=== PATIENT | female | born 1985 | race Caucasian/White ===

== ENCOUNTER 2021-02-04 23:55 | Emergency (ER) | payer MEDICAID, SELFPAY ==
[2021-02-04 23:56] VITALS: BP 126/71; PULSE 122; RESP 18; TEMP 36.7; O2SAT 98; BMI 20.7
[2021-02-05 00:16] VITALS: BP 126/71; PULSE 122; RESP 18; TEMP 36.7; O2SAT 98
--- NOTE | 2021-02-05 00:25 | CT_ITS ---
STUDY: CT SOFT TISSUE NECK WITH CONTRAST REASON FOR EXAM: Female, 35 years old. abscess RADIATION DOSAGE (If Supplied By Facility): CTDIvol = ( 9.29 ) mGy, DLP = ( 283.17 ) mGycm TECHNIQUE: The patient was scanned in a multi-detector CT scanner. High resolution transaxial imaging was performed following intravenous administration of IV 75mL Isovue-370. Sagittal and coronal images were reconstructed. Individualized dose optimization techniques were used for this CT. COMPARISON: None. FINDINGS: Within the musculature of the left neck near the base of the neck, there is increased edema and swelling with soft tissue and skin thickening with likely small abscess measuring 2.3 x 1.6 cm. Remainder of the visualized soft tissue structures of the neck are within normal limits. No evidence of peritonsillar abscess. CT/Soft Tissue Neck WITH Contrast IMPRESSION: Soft tissue swelling and edema with muscular inflammation and likely small abscess within the musculature near the base of the left neck. Recommend direct visualization Electronically Signed: Mohit Posey DO at 2:07 EDT Tel , Service support ,
[2021-02-05 01:02] LABS: Anion Gap 5 (5-15); BUN 11 mg/dL (7-18); BUN/Creat Ratio 17.7 RATIO (10-20); Calcium,Total 8.9 mg/dL (8.5-10.1); Chloride 102 mmol/L (98-107); Creatinine, Serum 0.62 mg/dL (0.55-1.02); EST Glomerular Filtration Rate 116 mL/min (>60); Est Glom Filt Rate - Afr Amer 140 mL/min (>60); Estimated Creatinine Clearance 95.57 ml/min; Glucose 106 mg/dL (74-106); Potassium 3.2 mmol/L (3.5-5.1); Sodium Level 136 mmol/L (136-145)
[2021-02-05 01:07] LABS: Internal QC Validated? YES +Cl - CLEAR BKGD; Pregnancy, Serum, hCG Quali. NEGATIVE Negative
[2021-02-05 01:08] LABS: Absolute Lymphocyte Count 1.64 X10^3/uL (0.83-4.51); Absolute Neutrophil Count 5.4 X10^3/uL (2.0-7.7); Basophil# 0.04 X10^3/uL; Basophil% 0.5 % (0-1); Eosinophil# 0.17 X10^3/uL; Eosinophils% 2.2 % (0-5); Hemoglobin 11.6 g/dL (12.0-15.0); Lymphocyte # 1.64 X10^3/ul (0.83-4.51); Lymphocyte % 21.1 % (19-41); Mean Corp Hgb Conc 33.1 g/dL (32-36); Mean Corpuscular Hgb 28.3 pg (27.0-32.0); Mean Corpuscular Volume 85.4 fL (81-99); Mean Platelet Vol. 10.4 fl (6.2-12.0); Monocyte# 0.51 X10^3/uL; Monocyte% 6.6 % (0-10); NRBC Flagged by Analyzer 0 % (0-5); Neutrophil # 5.37 X10^3/uL (2.7-7.7); Neutrophil % 69.2 % (47-70); Platelet Count 207 K/mm3 (150-450); RBC Distribution Width CV 13.1 % (11.6-14.6); RBC Distribution Width SD 40.4 fl (35.1-43.9); White Blood Count 7.8 K/mm3 (4.4-11.0)
[2021-02-05 01:30] VITALS: BP 106/73; PULSE 98; RESP 18; TEMP 36.9; O2SAT 100
[2021-02-05 02:57] VITALS: BP 108/70; PULSE 90; RESP 16; TEMP 37.1; O2SAT 100
--- NOTE | 2021-02-05 03:42 | EX.ED.DYSGE1 ---
HPI History of Present Illness Chief Complaint: Abscess Detail of Chief Complaint: Left neck abscess from injecting Informant: patient Onset/Context/Timing Onset: Days Context: Gradual Onset Timing: Continuous Location: Left anterior and lower neck Current Severity: Moderate Maximum Severity: Moderate Worsened by: Touch and movement Associated Symptoms Associated Symptoms: She also has erythema to her right forearm at an injection site Narrative Narrative: Patient is an IV drug abuser. She injected into the above-mentioned areas. Noticed some redness. There is a possible abscess to the base of the left neck. Patient has no other complaints PFSH PFS Home Medications NK 02/05/21 [History Last Taken Unknown] Allergy/AdvReac Type Severity Reaction Status Date / Time Penicillins Allergy Anaphylaxis Verified 02/04/21 23:58 Social History Smoking Status: Current every day smoker ROS ROS ED Constitutional Constitutional ED: Denies chills or fever(s) Eyes Eyes: Denies change in vision ENT ENT ED: Denies ear pain Cardiovascular Cardiovascular: Denies chest pain Respiratory/Chest Respiratory/Chest: Denies dyspnea Gastrointestinal Gastrointestinal: Denies abdominal pain Genitourinary Genitourinary ED: Denies dysuria Musculoskeletal Musculoskeletal: Denies arthralgias or myalgias Integumentary Reports abscess and rash Neurologic Neurologic: Denies headache(s), paresthesias or weakness Psychiatric Psychiatric: Denies anxiety or depression Endocrine Endocrinology: Denies polyuria EXAM Physical Exam Const Vital Signs: 02/04/21 23:56 02/05/21 00:16 02/05/21 01:30 Temperature 98.0 F 98.0 F 98.4 F Temperature Source Temporal Temporal Oral Pulse Rate 122 H 122 H 98 Respiratory Rate 18 18 18 Blood Pressure 126/71 H 126/71 H 106/73 Blood Pressure Mean 89 89 84 Pulse Ox 98 98 100 Oxygen Delivery Method Room Air Room Air Room Air 02/05/21 02:57 Temperature 98.8 F Temperature Source Oral Pulse Rate 90 Respiratory Rate 16 Blood Pressure 108/70 Blood Pressure Mean 82 Pulse Ox 100 Oxygen Delivery Method Room Air Positive well nourished and well developed General Appearance ED: well developed HEENT Negative for trauma Eyes Negative for EOMs intact bilaterally Neck Neck Narrative: Erythema, induration, tenderness at the base of the left anterior neck Chest Wall inspection of chest normal Resp normal respiratory effort and clear to auscultation bilaterally Cardio regular rate and regular rhythm GI normal to inspection, nondistended, normoactive bowel sounds Extremity Negative for normal to inspection General Extremety ED: Negative for edema or tenderness General Extremity: Negative for edema Neuro no sensory deficits noted Sensorium / Orientation: alert Motor Exam: strength 5/5 throughout Psych mental status grossly normal Skin No no rashes or lesions noted Skin Narrative: Erythema without induration or mass to the right mid forearm MDM MDM MDM Narrative Medical decision making narrative: Patient has signs of cellulitis to her left neck and right forearm. I am also concerned for abscess in the left neck. Labs below. She is not septic. Covid negative. CT was performed. There is a small abscess and inflammation into the soft tissue and muscles of the base of the left neck measuring 2.3 x 1.6 cm. I do not have plastics or any other specialist that can address this at this facility. Patient requested [place]. Accepted to [facility] Dr. Martínez. Lab Data Labs: Laboratory Results - last 24 hr 02/05/21 02/05/21 02/05/21 00:43 00:43 00:43 WBC 7.8 RBC 4.10 L Hgb 11.6 L Hct 35.0 L MCV 85.4 MCH 28.3 MCHC 33.1 RDW Std Deviation 40.4 RDW Coeff of Luz 13.1 Plt Count 207 MPV 10.4 Immature Gran % (Auto) 0.400 Neut % (Auto) 69.2 Lymph % (Auto) 21.1 [place] % (Auto) 6.6 Eos % (Auto) 2.2 Baso % (Auto) 0.5 Absolute Neuts (auto) 5.4 Absolute Lymphs (auto) 1.64 Nucleated RBC % 0 Sodium 136 Potassium 3.2 L Chloride 102 Carbon Dioxide 29.0 Anion Gap 5 BUN 11 Creatinine 0.62 Estim Creat Clear Calc 95.57 Est GFR (MDRD) Af Amer 140 Est GFR (MDRD) Non-Af 116 BUN/Creatinine Ratio 17.7 Glucose 106 Calcium 8.9 Serum , Qual NEGATIVE Radiography Diagnostic Testing: Radiology Impression Soft Tissue Neck CT 02/05/21 00:25 IMPRESSION: Soft tissue swelling and edema with muscular inflammation and likely small abscess within the musculature near the base of the left neck. Recommend direct visualization Electronically Signed: Mohit Posey DO at 2:07 EDT Tel , Service support , Discharge Plan Triage Chief Complaint: Abscess ED Provider: Ronald Jensen Dx/Rx/DC Orders Clinical Impression: Abscess of skin of neck Prescriptions: No Action NK RF: 0 Primary Care Provider: Care Physician,No Primary Referrals: Care Physician,No Primary [Primary Care Provider] - Disposition Disposition: Transfer to another type HCF
--- NOTE | 2021-02-05 03:44 | ED.RN ---
PT REFUSES TO GO VIA EMS . OK PER MD FOR HER TO ARRIVE VIA PRIVATE CAR, IV D/C'D FOR PRIVATE TRANSPORT
== END 2021-02-05 03:53 | disposition short-term general hospital (02) ==
PROVIDERS: Emergency Provider Emergency Medicine
DX: L02.11 Cutaneous abscess of neck (principal); F17.200 Nicotine dependence, unspecified, uncomplicated
CPT/HCPCS: 36415; 70491; 80048; 84703; 85025; 87040; 87426; 96365; 99283; J7050; Q9967

== ENCOUNTER 2021-11-03 18:24 | Emergency (ER) | payer MEDICAID, SELFPAY ==
[2021-11-03 18:24] VITALS: BP 133/82; PULSE 114; RESP 20; TEMP 35.7; O2SAT 97; BMI 23.6
--- NOTE | 2021-11-03 18:59 | EDS_ITS ---
HPI HPI - GI History of Present Illness Chief Complaint: Flank Pain Informant: patient Abdominal Pain/Flank Pain Onset: Days (3) Context: Gradual Onset Timing: Continuous Quality: Aching Location: - (Left pelvis/lower quadrant, radiating into the left low back) Current Severity: Moderate Maximum Severity: Moderate Worsened by: Nothing Relieved by: Nothing Nausea/Vomiting/Emesis GI Symptom: Positive for Nausea; Negative for Vomiting Diarrhea/Melena/Hematochezia GI Symptom: Negative for Diarrhea, Melena and Hematochezia Associated Symptoms Associated Symptoms: Positive for Dysuria and Frequency; Negative for Hematuria and Urgency Narrative Narrative: Gradual onset left lower quadrant pain over the last few days. Unprotected intercourse recently, concerned that she may have an STD and wants tested for that to. She has a new mild creamy white discharge from her vagina that does not have foul smell. No vaginal bleeding. Irregular menstrual cycles for the last year or 2, she is not on her cycle currently. . PFSH PFSH Medical History Cholecystectomy planned Home Medications NK 02/05/21 [History Last Taken Unknown] Allergy/AdvReac Type Severity Reaction Status Date / Time Penicillins Allergy Anaphylaxis Verified 11/03/21 18:24 Social History Smoking Status: Current every day smoker tobacco type: cigarettes ROS ROS ED Constitutional Constitutional ED: Denies chills or fever(s) Eyes Eyes: Denies change in vision or diplopia ENT ENT ED: Denies rhinorrhea or sore throat Cardiovascular Cardiovascular: Denies chest pain or palpitations Respiratory/Chest Respiratory/Chest: Denies cough or dyspnea Gastrointestinal Gastrointestinal: Reports as per HPI, abdominal pain and nausea; Denies diarrhea or vomiting Genitourinary Genitourinary ED: Reports dysuria and vaginal discharge; Denies hematuria Musculoskeletal Musculoskeletal: Reports back pain; Denies neck pain Integumentary Denies abscess or rash Neurologic Neurologic: Denies headache(s), paresthesias or weakness Psychiatric Psychiatric: Denies anxiety or suicidal thoughts EXAM Physical Exam Const Vital Signs: 11/03/21 18:24 11/03/21 18:35 11/03/21 21:19 Temperature 96.2 F L Temperature Source Temporal Pulse Rate 114 H Respiratory Rate 20 H 16 Respiratory Effort Normal Non-Labored Blood Pressure 133/82 H Blood Pressure Mean 99 Pulse Ox 97 Oxygen Delivery Method Room Air Positive well nourished and well developed General Appearance ED: well developed and NAD HEENT Reports moist mucous membranes normocephalic and atraumatic Eyes PERRL and EOMs intact bilaterally Neck full ROM and supple Resp normal respiratory effort and clear to auscultation bilaterally Cardio regular rate, regular rhythm and no murmurs GI non-distended GI Narrative: Tender left lower quadrant into the pelvis but also laterally and higher up, no guarding or rebound tenderness, no other areas of tenderness. No palpable mass. Auscultation: normoactive bowel sounds Palpation: soft Speculum Exam - Vagina: vaginal discharge Back/Spine no CVA tenderness General Back: other FROM Extremity normal to inspection General Extremety ED: Negative for edema, pulses abnormal or tenderness General Extremity: Negative for edema or pulses abnormal Neuro oriented x3, CN's II-XII intact bilaterally and no sensory deficits noted Sensorium / Orientation: awake and alert Motor Exam: strength 5/5 throughout Skin no rashes or lesions noted and no wounds MDM MDM MDM Narrative Medical decision making narrative: Given her vaginal discharge and risk for an STI, I obtain basic labs and a first, it was negative so she was sent for a non- transvaginal ultrasound as the initial imaging choice, to evaluate the left ovary as the more likely source of the pain as opposed to the colon/diverticulitis at her age and health. The ultrasound was normal, and the patient was here long enough for her GC and chlamydia test to return, with chlamydia being negative and gonorrhea being positive. Her white count is only 6.1 and she has a very benign abdomen. Given that, I do not suspect she has PID, and the ultrasound does not show any evidence of a tubo-ovarian abscess. I discussed all this with the patient and she is comfortable with the plan of treating her gonorrhea since we have an IV we are using ceftriaxone 1 g, and if she gets worse despite this she can either follow-up or return for further evaluation which I do not think is necessary right now. She was given Toradol for the pain as well, but even before this she was feeling very well clinically without severe symptoms. Lab Data Attestation: I reviewed the patient's lab results. Labs: Laboratory Results - last 24 hr 11/03/21 11/03/21 11/03/21 19:04 19:09 19:09 WBC 6.1 RBC 4.10 L Hgb 11.8 L Hct 35.0 L MCV 85.4 MCH 28.8 MCHC 33.7 RDW Std Deviation 45.1 H RDW Coeff of Luz 14.6 Plt Count 208 MPV 9.3 Immature Gran % (Auto) 0.200 Neut % (Auto) 43.4 L Lymph % (Auto) 42.0 H [place] % (Auto) 10.5 H Eos % (Auto) 2.8 Baso % (Auto) 1.1 H Absolute Neuts (auto) 2.7 Absolute Lymphs (auto) 2.56 Nucleated RBC % 0 Differential Comment SEE COMMENT Atypical Lymphocytes 1+ Platelet Estimate ADEQUATE RBC Morphology N CHROM Anisocytosis RARE Sodium 138 Potassium 3.8 Chloride 106 Carbon Dioxide 26.0 Anion Gap 6 BUN 12 Creatinine 0.59 Estim Creat Clear Calc 94.68 Est GFR (MDRD) Af Amer 148 Est GFR (MDRD) Non-Af 122 BUN/Creatinine Ratio 20.3 H Glucose 127 H Calcium 8.5 Urine Color Yellow Urine Clarity Clear Urine pH 8.0 Ur Specific [place] 1.015 Urine Protein Negative Urine Glucose (UA) Normal Urine Ketones Negative Urine Occult Blood Negative Urine Nitrite Negative Urine Bilirubin Negative Urine Urobilinogen 1 H Ur Leukocyte Esterase 100 H Urine RBC 0 SEEN Urine WBC 0-5 SEEN Ur Squamous Epith Cells 0-5 SEEN Urine Bacteria 2+ Urine Mucus 0 SEEN Urine Test Negative Chlam trachomat DNA PCR N.gonorrhoeae DNA (PCR) 11/03/21 19:20 WBC RBC Hgb Hct MCV MCH MCHC RDW Std Deviation RDW Coeff of Luz Plt Count MPV Immature Gran % (Auto) Neut % (Auto) Lymph % (Auto) [place] % (Auto) Eos % (Auto) Baso % (Auto) Absolute Neuts (auto) Absolute Lymphs (auto) Nucleated RBC % Differential Comment Atypical Lymphocytes Platelet Estimate RBC Morphology Anisocytosis Sodium Potassium Chloride Carbon Dioxide Anion Gap BUN Creatinine Estim Creat Clear Calc Est GFR (MDRD) Af Amer Est GFR (MDRD) Non-Af BUN/Creatinine Ratio Glucose Calcium Urine Color Urine Clarity Urine pH Ur Specific [place] Urine Protein Urine Glucose (UA) Urine Ketones Urine Occult Blood Urine Nitrite Urine Bilirubin Urine Urobilinogen Ur Leukocyte Esterase Urine RBC Urine WBC Ur Squamous Epith Cells Urine Bacteria Urine Mucus Urine Test Chlam trachomat DNA PCR Negative N.gonorrhoeae DNA (PCR) Positive H Radiography Diagnostic Testing: Clinical Impression(s) from Imaging Studies Transvaginal US 11/03/21 19:27 IMPRESSION: Unremarkable pelvic sonogram. Electronically Signed: Williams Cyr MD at 21:00 EST , Discharge Plan Triage Chief Complaint: Flank Pain ED Provider: Karri Lees Dx/Rx/DC Orders Clinical Impression: Left lower quadrant abdominal pain, Gonorrhea Instructions: ED Gonorrhea, Female Prescriptions: No Action NK RF: 0 Primary Care Provider: Care Physician,No Primary Referrals: Stacy Chino [NON-STAFF] - 5-7 Days Care Physician,No Primary [Primary Care Provider] - Disposition Disposition: Home, Self Care
[2021-11-03] MEDS: Ondansetron 4 MG/2 ML Vial IV (19:09)
[2021-11-03 19:14] LABS: Absolute Lymphocyte Count 2.56 X10^3/uL (0.83-4.51); Absolute Neutrophil Count 2.7 X10^3/uL (2.0-7.7); Basophil# 0.07 X10^3/uL; Basophil% 1.1 % (0-1); Eosinophil# 0.17 X10^3/uL; Eosinophils% 2.8 % (0-5); Hemoglobin 11.8 g/dL (12.0-15.0); Lymphocyte # 2.56 X10^3/ul (0.83-4.51); Mean Corp Hgb Conc 33.7 g/dL (32-36); Mean Corpuscular Hgb 28.8 pg (27.0-32.0); Mean Corpuscular Volume 85.4 fL (81-99); Mean Platelet Vol. 9.3 fl (6.2-12.0); Monocyte# 0.64 X10^3/uL; Monocyte% 10.5 % (0-10); NRBC Flagged by Analyzer 0 % (0-5); Neutrophil # 2.65 X10^3/uL (2.7-7.7); Neutrophil % 43.4 % (47-70); POSITIVE MORPHOLOGY YES; Platelet Count 208 K/mm3 (150-450); RBC Distribution Width CV 14.6 % (11.6-14.6); RBC Distribution Width SD 45.1 fl (35.1-43.9); White Blood Count 6.1 K/mm3 (4.4-11.0)
[2021-11-03 19:15] LABS: Mucous, Urine 0 SEEN /hpf (<or=2+); Red Blood Cells-Urine 0 SEEN /hpf (0-5)
[2021-11-03 19:19] LABS: Color, Urine Yellow (Yellow); Glucose, Dipstick Normal (Normal); Ketone-Dipstick Negative (Negative); Leukocyte Esterase-Dipstick 100 /ul (Negative); Nitrite-Dipstick Negative (Negative); Occult Blood-Urine Negative /ul (Negative); Protein-Dipstick Negative (Negative); Specific Gravity, Urine 1.015 (1.002-1.030); Urine Bilirubin Dipstick Negative (Negative); Urine Clarity Clear (Clear); Urine Urobilinogen 1 mg/dl (Normal)
[2021-11-03 19:26] LABS: Bacteria 2+ /hpf (None Seen); Internal QC Validated? YES +Cl - CLEAR BKGD; Pregnancy, Urine Negative Negative; Squamous Epithelial Cells - UA 0-5 SEEN /hpf (5-10); White Blood Cells 0-5 SEEN /hpf (0-5)
--- NOTE | 2021-11-03 19:27 | US_ITS ---
STUDY: ULTRASOUND TRANSVAGINAL CLINICAL: Female, 36 years old. Left pelvic pain, vaginal d/c TECHNIQUE: Transvaginal COMPARISON: None. FINDINGS: Normal uterine size measuring 7.3 x 5.2 x 3.9 cm in maximal craniocaudal dimension. There are no myometrial masses. Normal endometrial thickness measuring 11 mm. There are no endometrial masses, and there is no fluid in the endometrial cavity. Nabothian cysts are noted. Normal right ovary, measuring 2.3 x 1.9 x 1.6 cm. There are multiple follicles without a dominant cyst. Normal left ovary, measuring 3.4 x 2.6 x 2.1 cm. There are multiple follicles without a dominant cyst. There is no free fluid in the pelvis. Polycystic ovary disease: No. US/Transvaginal Non- IMPRESSION: Unremarkable pelvic sonogram. Electronically Signed: Williams Cyr MD at 21:00 EST ,
[2021-11-03 19:29] LABS: Differential Indicated SCAN CRITERIA MET
[2021-11-03 19:33] LABS: Anion Gap 6 (5-15); BUN 12 mg/dL (7-18); BUN/Creat Ratio 20.3 RATIO (10-20); Calcium,Total 8.5 mg/dL (8.5-10.1); Chloride 106 mmol/L (98-107); Creatinine, Serum 0.59 mg/dL (0.55-1.02); EST Glomerular Filtration Rate 122 mL/min (>60); Est Glom Filt Rate - Afr Amer 148 mL/min (>60); Estimated Creatinine Clearance 94.68 ml/min; Glucose 127 mg/dL (74-106); Potassium 3.8 mmol/L (3.5-5.1); Sodium Level 138 mmol/L (136-145)
[2021-11-03 19:43] LABS: Anisocytosis RARE; Atypical Lymphocyte 1+ %; Platelet Estimate ADEQUATE (ADEQ); Red Cell Morphology N CHROM NORMAL (NORM C&C)
[2021-11-03 21:04] LABS: Chlamydia Trachomatis by PCR Negative (Negative); Neisserai gonorrhoeae by PCR Positive (Negative); Probe Check PASS
[2021-11-03 21:19] VITALS: RESP 16
--- NOTE | 2021-11-03 22:06 | ED.RN ---
PT DECLINED ANY MEDICATION (IV ATB AND IV PAIN MED) AND ATTEMPTED TO REMOVE OWN IV AND PT STATED 'VIVIANE BEEN HERE LONG ENOUGH.' THIS RN EDUCATED PATIENT ON ANTIBIOTIC USE AND HOME CARE.
== END 2021-11-03 22:08 | disposition home or self-care (01) ==
PROVIDERS: Emergency Provider Emergency Medicine; Visit Provider Emergency Medicine
DX: A54.02 Gonococcal vulvovaginitis, unspecified (principal); R10.32 Left lower quadrant pain; F17.210 Nicotine dependence, cigarettes, uncomplicated
CPT/HCPCS: 76830; 80048; 81001; 81025; 85025; 87491; 87591; 93976; 96374; 99283; A4216; J2405

== ENCOUNTER 2022-02-02 15:33 | Emergency (ER) | payer MEDICAID, SELFPAY ==
[2022-02-02 15:34] VITALS: BP 142/96; PULSE 103; RESP 18; TEMP 36.6; O2SAT 98; BMI 23.0
--- NOTE | 2022-02-02 15:44 | EDS_ITS ---
HPI HPI - Female History of Present Illness Chief Complaint: Female C/O Informant: patient Narrative Narrative: Patient states that she was in the emergency department last month and had a positive gonorrhea test. She states that since she was dope sick she left without her treatment. She has subsequently been in the [facility] and was released today and would like to be treated for her gonorrhea. It was actually November 03 when she was in the department not last month. She notes that she has a vaginal discharge. She denies any fevers. She denies any significant pain. [facility] Medical History Cholecystectomy planned Home Medications doxycycline monohydrate 100 mg PO BID #14 capsule 02/02/22 [Rx Last Taken Unknown] Allergy/AdvReac Type Severity Reaction Status Date / Time Penicillins Allergy Anaphylaxis Verified 02/02/22 15:35 Social History (Updated 02/02/22 @ 15:[address] Ronald Schwartz DO) Smoking Status: Current every day smoker tobacco type: cigarettes substance use type: opiates ROS ROS ED Constitutional Constitutional ED: Denies chills, fever(s) or weight loss Eyes Eyes: Denies change in vision or diplopia ENT ENT ED: Denies ear pain, rhinorrhea or sore throat Cardiovascular Cardiovascular: Denies chest pain, orthopnea, palpitations or racing heartbeat Respiratory/Chest Respiratory/Chest: Denies cough, dyspnea or orthopnea Gastrointestinal Gastrointestinal: Denies abdominal pain, diarrhea, nausea or vomiting Genitourinary Genitourinary ED: Reports other Details: Vaginal discharge ; Denies dysuria, hematuria or urinary frequency Musculoskeletal Musculoskeletal: Denies arthralgias or myalgias Integumentary Denies abscess or rash Neurologic Neurologic: Denies headache(s) or weakness Psychiatric Psychiatric: Denies anxiety, depression, suicidal ideation or suicidal thoughts Endocrine Endocrinology: Denies polydipsia, polyphagia or polyuria Allergic/Immunologic Allergic/Immunologic ED: Denies mouth swelling, tongue swelling or urticaria EXAM Physical Exam Const Vital Signs: 02/02/22 15:34 Temperature 98 F Temperature Source Temporal Pulse Rate 103 H Respiratory Rate 18 Blood Pressure 142/96 H Blood Pressure Mean 111 Pulse Ox 98 Oxygen Delivery Method Room Air Positive well nourished and well developed General Appearance ED: well developed HEENT Reports normocephalic, head/scalp atraumatic and moist mucous membranes Negative for trauma Eyes PERRL and EOMs intact bilaterally Neck no lymphadenopathy, supple and no JVD Resp normal respiratory effort and clear to auscultation bilaterally Cardio regular rate, regular rhythm and no murmurs GI normal to inspection, nondistended, normoactive bowel sounds and non-tender Palpation: soft Back/Spine no CVA tenderness and normal ROM Extremity normal to inspection General Extremety ED: Negative for edema General Extremity: Negative for edema Neuro oriented x3 and CN's II-XII intact bilaterally Sensorium / Orientation: alert Motor Exam: strength 5/5 throughout Psych mental status grossly normal Mood & Affect: Negative for depressed or tearful Skin no rashes or lesions noted and no wounds MDM MDM MDM Narrative Medical decision making narrative: Patient will be treated with 500 mg IM Rocephin and doxycycline. Discharge Plan Triage Chief Complaint: Female C/O ED Provider: Ronald Schwartz Dx/Rx/DC Orders Clinical Impression: Gonorrhea Instructions: ED Gonorrhea, Female Prescriptions: New doxycycline monohydrate 100 MG capsule 100 mg PO BID Qty: 14 RF: 0 Primary Care Provider: Care Physician,No Primary Referrals: Alexandrea Mercer DO [STAFF PHYSICIAN] - As Needed (for gynecology) Care Physician,No Primary [Primary Care Provider] - Disposition Disposition: Home, Self Care
[2022-02-02] MEDS: Ceftriaxone 500 MG Vial IM (16:05)
== END 2022-02-02 16:11 | disposition home or self-care (01) ==
LOC: ED 16:08
PROVIDERS: Emergency Provider Emergency Medicine; Visit Provider Emergency Medicine
DX: A54.02 Gonococcal vulvovaginitis, unspecified (principal); F17.210 Nicotine dependence, cigarettes, uncomplicated
CPT/HCPCS: 96372; 99282

== ENCOUNTER 2022-07-03 22:17 | Emergency (ER) | payer MEDICAID, SELFPAY ==
[2022-07-03 22:18] VITALS: BP 203/117; PULSE 124; RESP 16; TEMP 36.6; O2SAT 100; BMI 22.8
--- NOTE | 2022-07-03 22:48 | EKG12_ITS ---
Test Reason : DYSRHYTHMIA Blood Pressure : / mmHG Vent. Rate : 120 BPM Atrial Rate : 120 BPM P-R Int : 174 ms QRS Dur : 086 ms QT Int : 300 ms P-R-T Axes : 040 071 003 degrees QTc Int : 424 ms Sinus tachycardia Otherwise normal ECG Confirmed by YASMANI BLAKE, RERE ([id number]), editor sound LILA BECK ([id number]) on 07/05/2022 9:33:37 AM Referred By: PL Confirmed By:RERE GRUBER MD
--- NOTE | 2022-07-03 22:54 | EDS_ITS ---
HPI History of Present Illness Chief Complaint: Edema Informant: patient Narrative Narrative: Patient has bilateral lower extremity swelling with some erythematous areas. She states they are a little bit sore but do not really hurt much. She did inject heroin in the left leg once within the last 2 weeks but has never injected in the right leg and both are affected equally. She does not feel as though she is in withdrawal. She injects heroin regularly. Last use was 5 or 6 hours ago. Her sister was concerned and convinced the patient to come in. Patient does not recall having any fevers but states she gets hot and cold and sweats with use of drugs and withdrawal so she is not sure. She does have a little erythema on the left forearm where she injected but it is mild. She has had 2 abscesses before that had to be drained. 1 was on her right hand and one was on the left side of her neck for which she was admitted to the hospital but she left AMA after 2 days. She does not have history of endocarditis. She denies history of having a murmur. [facility] Medical History Cholecystectomy planned Home Medications doxycycline monohydrate 100 mg capsule 100 mg PO BID #14 CAPSULES 02/02/22 [Rx Last Taken Unknown] Allergy/AdvReac Type Severity Reaction Status Date / Time Penicillins Allergy Anaphylaxis Verified 07/03/22 22:19 Social History Smoking Status: Current every day smoker tobacco type: cigarettes substance use type: opiates ROS ROS ED Constitutional Constitutional ED: Reports chills and sweats; Denies fever(s) or weight loss Eyes Eyes: Denies change in vision ENT ENT ED: Denies rhinorrhea or sore throat Cardiovascular Cardiovascular: Reports other Details: Her heart rate is fast but she does not really feel this. ; Denies chest pain, palpitations or racing heartbeat Respiratory/Chest Respiratory/Chest: Denies cough or dyspnea Gastrointestinal Gastrointestinal: Denies abdominal pain, nausea or vomiting Genitourinary Genitourinary ED: Denies dysuria Musculoskeletal Musculoskeletal: Reports other Details: See history of present illness. Integumentary Reports rash and other Details: See history of present illness. Neurologic Neurologic: Denies headache(s) Endocrine Endocrinology: Denies polydipsia or polyuria Hematologic/Lymphatic Hematologic/Lymphatic: Denies lymphadenopathy Allergic/Immunologic Allergic/Immunologic ED: Denies urticaria EXAM Physical Exam Const Vital Signs: 07/03/22 22:18 07/03/22 22:29 Temperature 97.9 F Temperature Source Temporal Pulse Rate 124 H Respiratory Rate 16 Respiratory Effort Normal Non-Labored Respiratory Pattern Normal Blood Pressure 203/117 H Blood Pressure Mean 145 Pulse Ox 100 Oxygen Delivery Method Room Air Positive well nourished and well developed Constitutional Narrative: Patient was attempted to be seen a couple other times by provider but was not in the room. When I see her she is getting back in the room. She is eating a candy bar. She is nontoxic in appearance. General Appearance ED: well developed and NAD HEENT Reports moist mucous membranes HEENT Narrative: Diffusely poor dentition but no obvious abscess. Eyes General Eye ED: Negative for scleral icterus Neck no lymphadenopathy Resp normal respiratory effort and clear to auscultation bilaterally Cardio regular rhythm Cardio Narrative: Heart is regular but tachycardic. I do hear a systolic murmur toward the right upper sternal border. Rate: tachycardic GI non-tender and non-distended Palpation: soft Back/Spine no CVA tenderness Extremity Extremity Narrative: She does have an area of erythema on the left forearm from recent injection but its not abscessed. Distal pulses x4 are intact. Both lower extremities have some edema from the mid pretibial area on down to the feet. There is a diffuse lacy erythematous rash. I do not see any splinter hemorrhages Jan[place]ay lesions. Neuro oriented x3 Gait (Neuro): normal gait Psych mental status grossly normal Psych Narrative: Patient is calm. She does not appear to be in withdrawal and does not feel as though she is in withdrawal. Skin Skin Narrative: See above. MDM MDM MDM Narrative Medical decision making narrative: Electrolytes show no marked abnormalities. I have no other results back. I found out from the nurse that evidently the patient had got up and left the department. There is no sign of her in the facility. We do not know where she went. She has eloped after initial evaluation. I had explained to her that I am concerned about infectious endocarditis and that this can be life- threatening. She was aware of this. Lab Data Attestation: I reviewed the patient's lab results. Labs: Laboratory Results - last 24 hr 07/03/22 07/03/22 23:19 23:19 WBC Cancelled Corrected WBC Cancelled RBC Cancelled Hgb Cancelled Hct Cancelled MCV Cancelled MCH Cancelled MCHC Cancelled RDW Std Deviation Cancelled RDW Coeff of Luz Cancelled Plt Count Cancelled MPV Cancelled Immature Gran % (Auto) Cancelled Neut % (Auto) Cancelled Lymph % (Auto) Cancelled [place] % (Auto) Cancelled Eos % (Auto) Cancelled Baso % (Auto) Cancelled Absolute Neuts (auto) Cancelled Absolute Lymphs (auto) Cancelled Total Counted Cancelled Neutrophils % (Manual) Cancelled Band Neutrophils % Cancelled Lymphocytes % (Manual) Cancelled Monocytes % (Manual) Cancelled Eosinophils % (Manual) Cancelled Basophils % (Manual) Cancelled Metamyelocytes % Cancelled Myelocytes % Cancelled Promyelocytes % Cancelled Blast Cells % Cancelled Plasma Cell % (Manual) Cancelled Other Cells % Cancelled Nucleated RBC % Cancelled Nucleated RBCs/100 WBC Cancelled Differential Comment Cancelled Diff Path Review Cancelled Hypersegmented Neuts Cancelled Atypical Lymphocytes Cancelled Reactive Lymphocytes Cancelled Smudge Cells Cancelled Toxic Granulation Cancelled Toxic Vacuolation Cancelled Dohle Bodies Cancelled Levi Rods Cancelled Platelet Estimate Cancelled Plt Morphology Comment Cancelled RBC Morphology Cancelled Polychromasia Cancelled Hypochromasia Cancelled Poikilocytosis Cancelled Basophilic Stippling Cancelled Anisocytosis Cancelled Microcytosis Cancelled Macrocytosis Cancelled Spherocytes Cancelled Sickle Cells Cancelled Target Cells Cancelled Tear Drop Cells Cancelled Ovalocytes Cancelled Stomatocytes Cancelled Ding-[place] Bodies Cancelled [place] Cells Cancelled Bite Cells Cancelled Crenated Cell Cancelled Acanthocytes (Spur) Cancelled Rouleaux Cancelled Schistocytes Cancelled Sodium 136 Potassium 3.5 Chloride 103 Carbon Dioxide 27.0 Anion Gap 6 BUN 6 L Creatinine 0.60 Estim Creat Clear Calc 92.21 Est GFR (MDRD) Af Amer 146 Est GFR (MDRD) Non-Af 121 BUN/Creatinine Ratio 10.1 Glucose 80 Calcium 8.6 Total Bilirubin 0.30 AST 48 H ALT 55 Alkaline Phosphatase 109 Troponin I High Sens 5 Total Protein 7.5 Albumin 3.4 Globulin 4.1 Albumin/Globulin Ratio 0.8 L Discharge Plan Triage Chief Complaint: Edema Other Complaint: Cold Sx ED Provider: Torsten Majano Dx/Rx/DC Orders Clinical Impression: Bilateral lower extremity edema, Tachycardia, Newly recognized heart murmur, Eloped from emergency department Prescriptions: No Action doxycycline monohydrate 100 MG capsule 100 mg PO BID Qty: 14 0RF Primary Care Provider: Care Physician,No Primary Referrals: Care Physician,No Primary [Primary Care Provider] - Disposition Disposition: Elopement Discharge Date/Time: 07/03/22 23:50
--- NOTE | 2022-07-03 23:45 | NURSING ---
high court justice attempted to start IV pt started crying telling nurse to take out IV it was hurting. pt verbalized to transmitter engineer in charge she was going to leave she did not want to be a pin cushion like in [place]. This nurse went into room to speak with pt but pt had already left. doctor updated.
[2022-07-03 23:51] LABS: ALB/GLOB Ratio 0.8 RATIO (0.9-2.4); AST(SGOT) 48 U/L (15-37); Alanine Aminotransfer ALT/SGPT 55 U/L (13-56); Albumin, Serum 3.4 g/dL (3.2-5.0); Alkaline Phosphatase 109 U/L (45-117); Anion Gap 6 (5-15); BUN 6 mg/dL (7-18); BUN/Creat Ratio 10.1 RATIO (10-20); Calcium,Total 8.6 mg/dL (8.5-10.1); Chloride 103 mmol/L (98-107); EST Glomerular Filtration Rate 121 mL/min (>60); Est Glom Filt Rate - Afr Amer 146 mL/min (>60); Estimated Creatinine Clearance 92.21 ml/min; Globulin 4.1 g/dL (2.2-4.2); Glucose 80 mg/dL (74-106); Potassium 3.5 mmol/L (3.5-5.1); Protein, Total 7.5 g/dL (6.4-8.2); Sodium Level 136 mmol/L (136-145); Troponin-I HS 5 pg/mL (3.0-54.0)
== END 2022-07-03 23:50 | disposition left against medical advice (07) ==
PROVIDERS: Emergency Provider Emergency Medicine; Visit Provider Emergency Medicine
DX: R60.0 Localized edema (principal); F11.99 Opioid use, unspecified with unspecified opioid-induced disorder; R00.0 Tachycardia, unspecified; R01.1 Cardiac murmur, unspecified; F17.210 Nicotine dependence, cigarettes, uncomplicated
CPT/HCPCS: 99281; 80053; 84484; 93005; 99282; J7050

== ENCOUNTER 2024-11-04 20:14 | Emergency (ER) | payer MEDICAID, SELFPAY ==
[2024-11-04 20:15] VITALS: BP 120/63; PULSE 98; RESP 18; TEMP 36.8; O2SAT 98; BMI 22.6
--- NOTE | 2024-11-04 20:56 | CT_ITS ---
PROCEDURE: ABDOMEN/PELVIS W IV CONT ONLY REASON FOR EXAM: Left lower quadrant pain TECHNIQUE: Abdomen and pelvis CT with intravenous contrast. Multiplanar reconstructions performed. COMPARISON: None. FINDINGS: Lower chest: Unremarkable. Liver: There is a tiny hypodense lesion in the left hepatic lobe which may represent a small hemangioma. Biliary/gallbladder: Prior cholecystectomy. Pancreas: Unremarkable. Spleen: Unremarkable. Adrenal glands: Unremarkable. Kidneys: Unremarkable. Gastrointestinal/peritoneum: No acute abnormality.The appendix is unremarkable.No free air or free fluid. Vascular: Unremarkable. Lymph nodes: No enlarged lymph nodes by CT size criteria. Pelvic organs: A cyst is noted in the right adnexa measuring 2.2 cm, likely an ovarian cyst. Bladder: Unremarkable. Bones: Unremarkable. Soft tissues: Unremarkable. CT/Abdomen/Pelvis W IV Cont ONLY IMPRESSION: 1. No acute abnormality of the abdomen and pelvis. 2. Prior cholecystectomy. [facility]
--- NOTE | 2024-11-04 21:28 | EX.ED.DYSGE1 ---
HPI <BLADIMIR Ding - Last Filed: 11/04/24 22:03> History of Present Illness Chief Complaint: Abd Pain Narrative Narrative: Patient presenting today due to left lower quadrant abdominal pain she has had since yesterday. Reports that the pain is sharp and constant. She denies history of diverticulitis or kidney stones. Previous abdominal surgery includes cholecystectomy. She last had a bowel movement this afternoon and it was normal. She denies fevers, chills, nausea, vomiting, and diarrhea. She denies dysuria but reports occasional suprapubic pain. She denies abnormal vaginal discharge and concerns for STDs. She has a PMH of hepatitis C. PFSH <BLADIMIR Ding - Last Filed: 11/04/24 22:03> PFSH Medical History Cholecystectomy planned Home Medications ?Medication ?Instructions ?Recorded ?Last Taken ?Type dicyclomine 20 mg tablet 20 mg PO TID #15 tabs 11/04/24 Unknown Rx Allergy/AdvReac Type Severity Reaction Status Date / Time Penicillins Allergy Anaphylaxis Verified 11/04/24 20:15 Social History Smoking Status: Current every day smoker tobacco type: cigarettes substance use type: opiates ROS <BLADIMIR Ding - Last Filed: 11/04/24 22:03> ROS ED Constitutional Constitutional ED: Denies chills or fever(s) Cardiovascular Cardiovascular: Denies chest pain Respiratory/Chest Respiratory/Chest: Denies dyspnea Gastrointestinal Gastrointestinal: Reports abdominal pain; Denies constipation, diarrhea, nausea or vomiting Genitourinary Genitourinary ED: Denies dysuria, hematuria or urinary urgency Musculoskeletal Musculoskeletal: Denies back pain Integumentary Denies rash Neurologic Neurologic: Denies weakness EXAM <BLADIMIR Ding - Last Filed: 11/04/24 22:03> Physical Exam Const Vital Signs: 11/04/24 20:15 11/04/24 22:15 Temperature 98.2 F 97.9 F Temperature Source Oral Oral Pulse Rate 98 83 Respiratory Rate 18 18 Blood Pressure 120/63 119/79 Blood Pressure Mean 82 92 Pulse Ox 98 97 Oxygen Delivery Method Room Air Room Air Positive well nourished, well developed and no apparent distress General Appearance ED: well developed HEENT Reports normocephalic and head/scalp atraumatic Mouth ED: Yes moist mucous membranes normal Eyes PERRL and EOMs intact bilaterally Neck full ROM and supple Chest Wall inspection of chest normal Resp normal respiratory effort and clear to auscultation bilaterally Cardio regular rate and regular rhythm GI soft to palpation, non-distended and no masses GI Narrative: Left lower quadrant tenderness to palpation, no rigidity or guarding. Negative McBurney's point tenderness. Back/Spine normal ROM and normal to inspection General Back: Negative for CVA tenderness Extremity normal to inspection and full ROM Neuro oriented x3, CN's II-XII intact bilaterally, moves all extremities, no focal motor deficits and no sensory deficits noted Sensorium / Orientation: awake and alert Psych mental status grossly normal and thought process normal Skin no rashes or lesions noted and no wounds <Nate Abdalla MD - Last Filed: 11/04/24 22:52> Physical Exam Const Vital Signs: 11/04/24 20:15 11/04/24 22:15 Temperature 98.2 F 97.9 F Temperature Source Oral Oral Pulse Rate 98 83 Respiratory Rate 18 18 Blood Pressure 120/63 119/79 Blood Pressure Mean 82 92 Pulse Ox 98 97 Oxygen Delivery Method Room Air Room Air MDM <BLADIMIR Ding - Last Filed: 11/04/24 22:03> [facility] Narrative Medical decision making narrative: Patient presenting today with constant and sharp left lower quadrant abdominal pain that started yesterday. She is otherwise well-appearing and in no acute distress. Her vitals are unremarkable. She does have numbness to her left lower quadrant on exam. Abdominal labs will be obtained as well as a CT scan of the abdomen and pelvis to assess for kidney stone, ovarian cyst, diverticulitis, appendicitis, bowel obstruction. Patient given IV Toradol for pain. Her CBC is unremarkable, she has an AST of 71 and ALT of 146, otherwise CMP unremarkable. Lipase and serum hCG negative. At this time, her UA and CT are pending. Lab Data Attestation: I reviewed the patient's lab results. Labs: Laboratory Results - last 24 hr 11/04/24 11/04/24 20:56 21:10 WBC 9.8 RBC 4.44 Hgb 12.5 Hct 38.6 MCV 86.9 MCH 28.2 MCHC 32.4 RDW Std Deviation 41.7 RDW Coeff of Luz 13.2 Plt Count 184 MPV 10.7 Immature Gran % (Auto) 0.300 Neut % (Auto) 70.5 H Lymph % (Auto) 19.0 [place] % (Auto) 8.8 Eos % (Auto) 1.0 Baso % (Auto) 0.4 Absolute Neuts (auto) 6.9 Absolute Lymphs (auto) 1.86 Nucleated RBC % 0 Sodium 137 Potassium 3.8 Chloride 101 Carbon Dioxide 28.0 Anion Gap 7 BUN 15 Creatinine 0.67 Estim Creat Clear Calc 85.07 Est GFR (MDRD) Af Amer 125 Est GFR (MDRD) Non-Af 103 BUN/Creatinine Ratio 22.3 H Glucose 122 H Calcium 9.2 Total Bilirubin 0.50 AST 71 H ALT 146 H Alkaline Phosphatase 109 Total Protein 7.7 Albumin 3.3 Globulin 4.4 H Albumin/Globulin Ratio 0.8 L Lipase < 10 L Serum , Qual NEGATIVE Urine Color Yellow Urine Clarity Sl. Cloudy Urine pH 6.0 Ur Specific [place] 1.025 Urine Protein 30 H Urine Glucose (UA) Normal Urine Ketones 5 H Urine Occult Blood 10 H Urine Nitrite Negative Urine Bilirubin 1 H Urine Urobilinogen 4 H Ur Leukocyte Esterase 500 H Urine RBC 0-5 SEEN Urine WBC 25-50 SEEN Ur Squamous Epith Cells 10-25 SEEN Urine Bacteria 1+ Urine Mucus 2+ Radiography Diagnostic Testing: Clinical Impression(s) from Imaging Studies Abdomen/Pelvis CT 11/04/24 20:56 IMPRESSION: 1. No acute abnormality of the abdomen and pelvis. 2. Prior cholecystectomy. Reading Location: [facility] <Nate Abdalla MD - Last Filed: 11/04/24 22:52> [facility] Narrative Medical decision making narrative: Patient presenting today with constant and sharp left lower quadrant abdominal pain that started yesterday. She is otherwise well-appearing and in no acute distress. Her vitals are unremarkable. She does have numbness to her left lower quadrant on exam. Abdominal labs will be obtained as well as a CT scan of the abdomen and pelvis to assess for kidney stone, ovarian cyst, diverticulitis, appendicitis, bowel obstruction. Patient given IV Toradol for pain. Her CBC is unremarkable, she has an AST of 71 and ALT of 146, otherwise CMP unremarkable. Lipase and serum hCG negative. At this time, her UA and CT are pending. Dr. Abdalla: I reviewed the radiology report of the CT of the abdomen and pelvis and there is no acute process. Additionally, I reviewed the ureter analysis and while there are white cells present, there are squamous epithelial cells, so I feel this is a contaminated specimen and I do not feel antibiotics are indicated. Her abdomen remains soft upon my examination at approximately 2250. She will be given Bentyl and prescription written. She was referred to primary care. Return instructions reviewed. Patient motivated for discharge. Disposition is discharged in stable condition. History & Record Review Discussion w/independent historian: Patient and Significant other Lab Data Labs: Laboratory Results - last 24 hr 11/04/24 11/04/24 20:56 21:10 WBC 9.8 RBC 4.44 Hgb 12.5 Hct 38.6 MCV 86.9 MCH 28.2 MCHC 32.4 RDW Std Deviation 41.7 RDW Coeff of Luz 13.2 Plt Count 184 MPV 10.7 Immature Gran % (Auto) 0.300 Neut % (Auto) 70.5 H Lymph % (Auto) 19.0 [place] % (Auto) 8.8 Eos % (Auto) 1.0 Baso % (Auto) 0.4 Absolute Neuts (auto) 6.9 Absolute Lymphs (auto) 1.86 Nucleated RBC % 0 Sodium 137 Potassium 3.8 Chloride 101 Carbon Dioxide 28.0 Anion Gap 7 BUN 15 Creatinine 0.67 Estim Creat Clear Calc 85.07 Est GFR (MDRD) Af Amer 125 Est GFR (MDRD) Non-Af 103 BUN/Creatinine Ratio 22.3 H Glucose 122 H Calcium 9.2 Total Bilirubin 0.50 AST 71 H ALT 146 H Alkaline Phosphatase 109 Total Protein 7.7 Albumin 3.3 Globulin 4.4 H Albumin/Globulin Ratio 0.8 L Lipase < 10 L Serum , Qual NEGATIVE Urine Color Yellow Urine Clarity Sl. Cloudy Urine pH 6.0 Ur Specific [place] 1.025 Urine Protein 30 H Urine Glucose (UA) Normal Urine Ketones 5 H Urine Occult Blood 10 H Urine Nitrite Negative Urine Bilirubin 1 H Urine Urobilinogen 4 H Ur Leukocyte Esterase 500 H Urine RBC 0-5 SEEN Urine WBC 25-50 SEEN Ur Squamous Epith Cells 10-25 SEEN Urine Bacteria 1+ Urine Mucus 2+ Radiography Diagnostic Testing: Clinical Impression(s) from Imaging Studies Abdomen/Pelvis CT 11/04/24 20:56 IMPRESSION: 1. No acute abnormality of the abdomen and pelvis. 2. Prior cholecystectomy. [facility] and Re-Evaluation :: Dr. Abdalla: I have personally performed a face to face assessment of the patient and have reviewed the ESTRELLA Note. I performed a substantive portion of the visit including all aspects of the following. My tarango findings include: History is abdominal pain. No nausea or vomiting, described as crampy in the lower portion of her abdomen. No exacerbating or alleviating factors. Exam is afebrile. Vital signs noted. Nontoxic-appearing. Cardiovascular examination reveals a regular rate and rhythm. Lungs are clear to auscultation bilaterally. The abdomen is soft and nontender with out guarding or rebound. Positive bowel sounds. Neurological examination nonfocal and nonlateralizing. Medical Decision Making: Check labs. Check CT. I reviewed the radiology report of the CT of the abdomen and pelvis and there is no acute process. Repeat examination at approximately 2250 shows her abdomen to remain soft. She was given dicyclomine here in the emergency department and prescription written for 15 tablets. I feel she be discharged to follow-up with her primary care provider. Return instructions to the emergency department were reviewed. Disposition is discharged home in stable condition. Other additions or changes: [None] Discharge Plan Triage Chief Complaint: Abd Pain ED Midlevel Provider: Lynn Erwin ED Provider: Nate Abdalla Dx/Rx/DC Orders Clinical Impression: Abdominal pain, Elevated transaminase level, History of hepatitis C Instructions: Abdominal Pain, ED Abdominal Pain Unkn Cause Fem Prescriptions: New dicyclomine 20 mg tablet 20 mg PO TID Qty: 15 0RF Primary Care Provider: Care Physician,No Primary Referrals: Brandon Del Real MD [Med Staff - Active Staff] - 3-5 Days if not improving Care Physician,No Primary [Primary Care Provider] - Activity Restrictions/Additional Instructions: Follow-up with your PCP if no improvement of your pain. Return for any other concerns. Print Language: Mauritian Disposition Disposition: Home, Self Care
[2024-11-04] MEDS: Ketorolac 15 MG/ML Vial IV (21:33)
[2024-11-04 21:38] LABS: Color, Urine Yellow (Yellow); Glucose, Dipstick Normal (Normal); Ketone-Dipstick 5 mg/dl (Negative); Leukocyte Esterase-Dipstick 500 /ul (Negative); Nitrite-Dipstick Negative (Negative); Occult Blood-Urine 10 /ul (Negative); Protein-Dipstick 30 mg/dl (Negative); Specific Gravity, Urine 1.025 (1.002-1.030); Urine Clarity Sl. Cloudy (Clear); Urine Urobilinogen 4 mg/dl (Normal)
[2024-11-04 21:40] LABS: Absolute Lymphocyte Count 1.86 X10^3/uL (0.83-4.51); Absolute Neutrophil Count 6.9 X10^3/uL (2.0-7.7); Basophil# 0.04 X10^3/uL; Basophil% 0.4 % (0-1); Hematocrit 38.6 % (37-47); Hemoglobin 12.5 g/dL (12.0-15.0); Lymphocyte # 1.86 X10^3/ul (0.83-4.51); Mean Corp Hgb Conc 32.4 g/dL (32-36); Mean Corpuscular Hgb 28.2 pg (27.0-32.0); Mean Corpuscular Volume 86.9 fL (81-99); Mean Platelet Vol. 10.7 fl (6.2-12.0); Monocyte# 0.86 X10^3/uL; Monocyte% 8.8 % (0-10); NRBC Flagged by Analyzer 0 % (0-5); Neutrophil % 70.5 % (47-70); Platelet Count 184 K/mm3 (150-450); RBC Distribution Width CV 13.2 % (11.6-14.6); RBC Distribution Width SD 41.7 fl (35.1-43.9); Red Blood Count 4.44 M/mm3 (4.2-5.4); White Blood Count 9.8 K/mm3 (4.4-11.0)
[2024-11-04 21:42] LABS: Internal QC Validated? YES +Cl - CLEAR BKGD; Pregnancy, Serum, hCG Quali. NEGATIVE Negative
[2024-11-04 21:49] LABS: ALB/GLOB Ratio 0.8 RATIO (0.9-2.4); AST(SGOT) 71 U/L (15-37); Alanine Aminotransfer ALT/SGPT 146 U/L (13-56); Albumin, Serum 3.3 g/dL (3.2-5.0); Alkaline Phosphatase 109 U/L (45-117); Anion Gap 7 (5-15); BUN 15 mg/dL (7-18); BUN/Creat Ratio 22.3 RATIO (10-20); Calcium,Total 9.2 mg/dL (8.5-10.1); Chloride 101 mmol/L (98-107); Creatinine, Serum 0.67 mg/dL (0.55-1.02); EST Glomerular Filtration Rate 103 mL/min (>60); Est Glom Filt Rate - Afr Amer 125 mL/min (>60); Estimated Creatinine Clearance 85.07 ml/min; Globulin 4.4 g/dL (2.2-4.2); Glucose 122 mg/dL (74-106); Lipase < 10 U/L (73-393); Potassium 3.8 mmol/L (3.5-5.1); Protein, Total 7.7 g/dL (6.4-8.2); Sodium Level 137 mmol/L (136-145)
[2024-11-04 22:15] VITALS: BP 119/79; PULSE 83; RESP 18; TEMP 36.6; O2SAT 97
[2024-11-04 22:20] LABS: Urine Bilirubin Dipstick 1 mg/dL (Negative)
[2024-11-04 22:22] LABS: Bacteria 1+ /hpf (None Seen)
[2024-11-04 22:23] LABS: Squamous Epithelial Cells - UA 10-25 SEEN /hpf (5-10)
[2024-11-04 22:24] LABS: Red Blood Cells-Urine 0-5 SEEN /hpf (0-5)
[2024-11-04 22:25] LABS: Mucous, Urine 2+ /hpf (<or=2+)
[2024-11-04 22:27] LABS: White Blood Cells 25-50 SEEN /hpf (0-5)
[2024-11-04] MEDS: Dicyclomine 10 MG Capsule 20 MG PO (22:57)
== END 2024-11-04 22:58 | disposition home or self-care (01) ==
PROVIDERS: Physician Assistant; Emergency Provider Emergency Medicine; Visit Provider Emergency Medicine
DX: R10.32 Left lower quadrant pain (principal); R74.01 Elevation of levels of liver transaminase levels; F17.210 Nicotine dependence, cigarettes, uncomplicated
CPT/HCPCS: 74177; 80053; 81001; 83690; 84703; 85025; 96374; 99283; Q9967; A4216

== ENCOUNTER 2024-12-31 00:04 | Emergency (ER) | payer MEDICAID, SELFPAY ==
[2024-12-31 00:04] VITALS: BP 119/104; PULSE 81; RESP 16; TEMP 36.6; O2SAT 100; BMI 23.0
[2024-12-31 00:08] VITALS: BP 119/104; PULSE 78; RESP 16; TEMP 36.6; O2SAT 100
[2024-12-31 00:09] VITALS: BP 134/88
--- NOTE | 2024-12-31 00:39 | EX.ED.DYSGE1 ---
HPI History of Present Illness Chief Complaint: Cellulitis Informant: patient and family Narrative Narrative: 39-year-old female presenting for redness and swelling to both lower legs, occurring simultaneously and fairly symmetrically. She states this occurred about 1.5 weeks ago, starting the day after she got out of half-way. She was in half-way for 30 days. She states she was very active in half-way, walking around a lot, not sedentary. She admits to using IV heroin, and she injected in her left calf and missed the vein, but states she did this after the redness and swelling started. She is having itching where the redness is in no pain. She denies any systemic symptoms such as fevers or chills, abdominal pain, or problems urinating. No dyspnea with exertion or orthopnea. Has a history of hepatitis C, did not seek treatment for it, has not noticed any jaundice or scleral icterus lately. No history of DVT or PE. [facility] Medical History (Updated 12/31/24 @ 00:[address] Karri Lees MD) Hepatitis C IV drug user Cholecystectomy planned Home Medications ?Medication ?Instructions ?Recorded ?Last Taken ?Type furosemide 20 mg tablet (Lasix) 20 mg PO DAILY #5 tabs 12/31/24 Unknown Rx Allergy/AdvReac Type Severity Reaction Status Date / Time Penicillins Allergy Anaphylaxis Verified 12/31/24 00:05 Social History Smoking Status: Current every day smoker tobacco type: cigarettes substance use type: opiates ROS ROS ED Constitutional Constitutional ED: Denies chills or fever(s) Eyes Eyes: Denies change in vision or diplopia ENT ENT ED: Denies rhinorrhea or sore throat Cardiovascular Cardiovascular: Reports pedal edema; Denies chest pain, orthopnea or palpitations Respiratory/Chest Respiratory/Chest: Denies cough, dyspnea or orthopnea Gastrointestinal Gastrointestinal: Denies abdominal pain, diarrhea, nausea or vomiting Genitourinary Genitourinary ED: Denies dysuria or hematuria Musculoskeletal Musculoskeletal: Denies back pain, extremity pain or neck pain Integumentary Reports pruritus and rash; Denies abscess Neurologic Neurologic: Denies headache(s), paresthesias or weakness Psychiatric Psychiatric: Denies anxiety or suicidal thoughts EXAM Physical Exam Const Vital Signs: 12/31/24 00:04 12/31/24 00:08 12/31/24 00:09 Temperature 97.8 F 97.8 F Temperature Source Oral Oral Pulse Rate 81 78 Respiratory Rate 16 16 Blood Pressure 119/104 H 119/104 H 134/88 H Blood Pressure Mean 109 109 103 Pulse Ox 100 100 Positive well nourished and well developed General Appearance ED: well developed and NAD HEENT Reports moist mucous membranes normocephalic and atraumatic Eyes PERRL and EOMs intact bilaterally Neck full ROM, supple and no JVD Resp normal respiratory effort and clear to auscultation bilaterally Cardio regular rate, regular rhythm and no murmurs GI non-tender and non-distended; Negative for hepatosplenomegaly Auscultation: normoactive bowel sounds Palpation: soft Back/Spine no CVA tenderness General Back: other FROM Extremity normal to inspection Extremity Narrative: Small linear contusion/nodule/cord that is nontender, left medial mid calf, where patient states she injected drugs and missed the vein. Several other nonraised nontender smaller ecchymoses on the posterior right calf. No other palpable cords. General Extremety ED: Yes edema; Negative for pulses abnormal or tenderness General Extremity: edema bilateral lower extremity Details: moderate (To mid szymanski bilaterally, a little worse on the left. Involves the lower legs only, not the feet or ankles.); Negative for pulses abnormal Neuro oriented x3, CN's II-XII intact bilaterally, no sensory deficits noted and gait normal Sensorium / Orientation: awake and alert Motor Exam: strength 5/5 throughout Psych mental status grossly normal Skin Skin Narrative: See extremity exam. There is erythema both lower legs, does not involve the ankles or the feet or the proximal aspect of the lower legs, does not really leighann is nontender. No petechia, purpura. MDM MDM MDM Narrative Medical decision making narrative: Unclear if this is dermatitis, redness and pruritus from the edema, or thrombocytopenia. The edema could be from cardiac issues although I do not hear a murmur to suggest vegetations on the valve which she is at risk for being an IV drug user, he could be renal in etiology, or hepatic, so I recommended testing for what I can hear, which is blood counts, including platelets, in which case we could also test for hemolysis/schistocytes, her albumin levels to see if she has loss of oncotic pressure, and to check for proteinuria. In addition, the edema is asymmetric, she could have developed a DVT, or superficial thrombophlebitis given the fact that she is injecting in her legs and missing veins, although she states this did start before she injected anywhere. She understands that and also she presents after hours when venous duplex Doppler ultrasound is not in available service, so I ordered all of these blood test as well as an EKG, but she refuses all of it put on her close and states she is ready to leave. We discussed this, she states he is not ready to undergo all this testing, I offered her a prescription for some Lasix and an outpatient duplex Doppler ultrasound which she is amenable to, she states if it does not get better with propping her legs up she will come back. She was also referred to a primary care physician. Discharge Plan Triage Chief Complaint: Cellulitis ED Provider: Karri Lees Dx/Rx/DC Orders Clinical Impression: Bilateral lower extremity edema, Intravenous drug user Instructions: ED Peripheral Edema, Bilateral, ED Thrombophlebitis, Superficial Prescriptions: New furosemide [Lasix] 20 mg tablet 20 mg PO DAILY Qty: 5 0RF Primary Care Provider: Care Physician,No Primary [facility]errals[facility]Non[facility]Staff[facility] - As soon as possible Print Language: Icelandic Disposition Disposition: Home, Self Care Discharge Date/Time: 12/31/24 00:53
--- NOTE | 2024-12-31 00:46 | ED.RN ---
Rn entered room to draw blood. pt states she does not want to stay. Dr. Lees notified
== END 2024-12-31 00:53 | disposition home or self-care (01) ==
PROVIDERS: Emergency Provider Emergency Medicine; Visit Provider Emergency Medicine
DX: M79.89 Other specified soft tissue disorders (principal); F17.210 Nicotine dependence, cigarettes, uncomplicated
CPT/HCPCS: 99282